=== PATIENT | female | born 1990 | race Caucasian/White ===

== ENCOUNTER 2016-09-30 16:06 | Inpatient (IN) | payer OTHER ==
[2016-09-30 17:26] LABS: Hematocrit 35 % (35-47); Hemoglobin 11.5 g/dl (12.0-16.0); Mean Corpuscular HGB Conc 33 g/dl (31-36); Mean Corpuscular Hemoglobin 27 pg (27-31); Mean Corpuscular Volume 83 fL (80-97); Mean Platelet Volume 8 um3 (7.4-10.4); Red Blood Count 4.21 10^6/ul (4.0-5.4); Red Cell Distribution Width 15 % (10.5-15); White Blood Count 14.4 10^3/ul (3.5-10.8)
[2016-10-01] MEDS ORDERED: Ammonia Inhalant* 1 EA AMP ONE (05:26)
[2016-10-01] MEDS ORDERED: Witch Hazel PAD* JAR TOPICAL PRN (07:51)
[2016-10-01] MEDS ORDERED: Glycerin ADULT SUPP PR PRN (07:51)
[2016-10-01] MEDS ORDERED: Dibucaine 1% 28.35 GM TUBE PR PRN (07:51)
[2016-10-01] MEDS: Docusate CAP* 100 MG PO SCH ×3 (08:26→20:30)
[2016-10-01] MEDS: Ibuprofen TAB* 600 MG PO PRN ×3 (08:26→20:31)
[2016-10-01] MEDS: Acetaminophen TAB* 325 MG PO PRN ×3 (13:36→22:40)
[2016-10-01] MEDS: Simethicone CHEW TAB* 80 MG PO SCH ×2 (19:40→19:41)
[2016-10-02] MEDS: Ibuprofen TAB* 600 MG PO PRN ×4 (02:36→20:48)
[2016-10-02] MEDS: Acetaminophen TAB* 325 MG PO PRN ×5 (02:36→23:34)
[2016-10-02 08:38] LABS: Hematocrit 32 % (35-47); Hemoglobin 10.2 g/dl (12.0-16.0); Mean Corpuscular HGB Conc 32 g/dl (31-36); Mean Corpuscular Hemoglobin 27 pg (27-31); Mean Corpuscular Volume 84 fL (80-97); Mean Platelet Volume 8 um3 (7.4-10.4); Red Blood Count 3.79 10^6/ul (4.0-5.4); Red Cell Distribution Width 15 % (10.5-15)
[2016-10-02] MEDS: Docusate CAP* 100 MG PO SCH ×3 (08:38→20:48)
[2016-10-02] MEDS ORDERED: Ferrous Gluconate TAB* 324 MG TAB PO SCH (09:00)
[2016-10-03] MEDS: Ibuprofen TAB* 600 MG PO PRN ×2 (03:19→11:11)
[2016-10-03] MEDS: Acetaminophen TAB* 325 MG PO PRN (08:43)
[2016-10-03] MEDS: Docusate CAP* 100 MG PO SCH (08:43)
[2016-10-03 08:54] VITALS: BP 109/71
== END 2016-10-03 12:39 | disposition home or self-care (01) | DRG 775 ==
LOC: EEVIPCON 16:06 → MCHOBOUT 16:06 → MCHOB 16:32 → EEVIPCON 16:32 → MCHOB 10-01 13:18
PROVIDERS: ADMIT Midwife; ATTEND Midwife
PROC: 10907ZC Drainage of Amniotic Fluid, Therapeutic from Products of Conception, Via Natural or Artificial Opening (ICD-10-PCS; principal; 2016-09-30)
PROC: 10E0XZZ Delivery of Products of Conception, External Approach (ICD-10-PCS; 2016-09-30)
PROC: 4A1HX4Z Monitoring of Products of Conception, Cardiac Electrical Activity, External Approach (ICD-10-PCS; 2016-09-30)
DX: O32.6XX0 Maternal care for compound presentation, not applicable or unspecified (principal); O99.344 Other mental disorders complicating childbirth; F41.9 Anxiety disorder, unspecified; O48.0 Post-term pregnancy; Z37.0 Single live birth; Z3A.41 41 weeks gestation of pregnancy; O99.824 Streptococcus B carrier state complicating childbirth; O75.89 Other specified complications of labor and delivery; N80.9 Endometriosis, unspecified
CPT/HCPCS: 36415; 85025; 86850; 86900; 86901; A9270-GY; J2540